=== PATIENT | female | born 1940 | race Caucasian/White ===

== ENCOUNTER 2016-04-23 09:51 | Day surgery (SDC) | payer OTHER ==
--- NOTE | 2016-04-21 14:29 | EKG Report ---
Test Performed on : 04/21/2016 2:12:17 PM Test Reason : PAT Blood Pressure : / mmHG Vent. Rate : 064 BPM Atrial Rate : 064 BPM P-R Int : 180 ms QRS Dur : 068 ms QT Int : 414 ms P-R-T Axes : 068 067 039 degrees QTc Int : 427 ms Normal sinus rhythm. Possible Septal infarct (cited on or before 30-DEC-2013) Abnormal ECG When compared with ECG of 30-DEC-2013 07:40, No significant change was found Confirmed by Michael Bustillos MD ([id number]) on 04/23/2016 9:10:43 PM
[2016-04-21 15:08] LABS: MANUAL DIFF NEEDED? NO
[2016-04-21 15:14] LABS: BASO% 0.4 % (0.0-0.8); EOS% 5.7 % (0.0-10.0); HEMATOCRIT 40.1 % (37.0-47.0); HEMOGLOBIN 13.1 g/dL (12.0-16.0); LYMPH# 2.01 X1000 (1.2-3.4); LYMPH% 28.8 % (20.5-51.1); MCH 26.6 PG (27-31); MCHC 32.7 g/dL (33-37); MCV 81.3 FL (81-99); MONO# 0.86 X1000 (0.11-0.59); MONO% 12.3 % (1.7-9.3); MPV 11.4 FL (7.4-10.4); NEUT% 52.8 % (42.2-75.2); PLT 211 X1000 (130-400); RBC 4.93 XMIL (4.2-5.4)
[2016-04-21 15:39] LABS: AGAP 11; BUN 16 mg/dL (8-22); CALCIUM 8.7 mg/dL (8.8-10.2); CHLORIDE 99 mmol/L (98-107); COSMO 277; POTASSIUM 4.7 mmol/L (3.5-5.1); SODIUM 138 mmol/L (136-145); TCO2 28 mmol/L (25-35)
[2016-04-23] MEDS ORDERED: LR 1,000 ML ONE ×3 (10:08→15:25)
[2016-04-23] MEDS ORDERED: KEFZOL 1 GM/D5W 50 ML ONE (10:08)
[2016-04-23] MEDS ORDERED: PEPCID ONE (10:18)
[2016-04-23] MEDS ORDERED: REGLAN ONE (10:18)
[2016-04-23] MEDS ORDERED: SODIUM CHLORIDE 0.9% ONE (12:06)
[2016-04-23] MEDS ORDERED: MARCAINE 0.25% PF/EPI 1:200,000 ONE (12:06)
[2016-04-23] MEDS ORDERED: FENTANYL ONE (14:18)
[2016-04-23] MEDS ORDERED: DIPRIVAN 1% ONE (14:18)
[2016-04-23] MEDS: MORPHINE ONE ×5 (14:25→15:09)
--- NOTE | 2016-04-23 14:33 | Diag Imaging Result Document ---
PROCEDURE NAME: OPERATIVE CHOLANGIOGRAM - 04/23/2016 INTRAOPERATIVE CHOLANGIOGRAM: COMPARISON: None available. FINDINGS: A single spot fluoroscopic image of the opacified common bile duct was provided, which was performed intraoperatively by Dr. José Miguel Lozoya. The common bile duct and common hepatic duct appear grossly normal in caliber. However, there is a potential filling defect seen at the distal end of the common bile duct as no contrast is seen entering small bowel on this single limited image. No other well-defined stricture and no other filling defect can be identified. IMPRESSION: As above. Please correlate with live fluoroscopic imaging. MTDD
[2016-04-23] MEDS ORDERED: NEOSTIGMINE ONE (15:24)
[2016-04-23] MEDS ORDERED: ZOFRAN ONE ×2 (15:24→16:37)
[2016-04-23] MEDS ORDERED: XYLOCAINE-MPF 2% ONE (15:25)
[2016-04-23] MEDS ORDERED: EPHEDRINE ONE (15:25)
[2016-04-23] MEDS ORDERED: ZEMURON ONE (15:25)
[2016-04-23] MEDS ORDERED: ROBINUL ONE (15:25)
[2016-04-23] MEDS ORDERED: QUELICIN (DOSE) ONE (15:25)
[2016-04-23] MEDS ORDERED: NORCO-5 ONE (15:45)
--- NOTE | 2016-04-23 17:15 | OPERATIVE NOTE ---
PROCEDURE DATE: 04/23/2016 PREOPERATIVE DIAGNOSIS: Chronic cholecystitis with cholelithiasis. POSTOPERATIVE DIAGNOSIS: Chronic cholecystitis with cholelithiasis. PRINCIPAL PROCEDURE: Laparoscopic cholecystectomy with intraoperative cholangiogram. SURGEON: Aviva Lozoya MD. ANESTHESIA: General in addition to local anesthetic. ESTIMATED BLOOD LOSS: 30 mL. DRAINS: None. INDICATIONS: Ms. Hue Morton is a 76-year-old white female who has been experiencing epigastric and right upper quadrant pain. An ultrasound was performed of her gallbladder which showed gallstones. It was felt that these gallstones were symptomatic, and cholecystectomy was recommended. FINDINGS: Her liver was a little bit swollen but otherwise appeared to be normal. There was no fatty infiltration involving the liver. Her gallbladder was chronically inflamed and had several small round stones within it. We did do an intraoperative cholangiogram which showed no dilatation of the extrahepatic bile ducts. The dye did not go into the duodenum, but I did not see any evidence of a stone at the ampulla. We felt the cholangiogram was essentially normal. We felt we did the operation safely, and no other intra-abdominal pathology was noted. DESCRIPTION OF PROCEDURE: The patient was brought to the operating room, placed supine, received general anesthesia, and was intubated. Her abdomen was prepped and draped within a sterile field. We began the procedure by making a small incision below the umbilicus with a 15 blade scalpel. A Veress needle was introduced through this incision, and a pneumoperitoneum was established. Once pneumoperitoneum was established, we removed the Veress needle. We used an 11 mm trocar and placed it intra-abdominally. The camera was placed through this port, and the abdomen was explored for injury; there was none. Three other trocars were placed along the right costal margin under direct vision of the camera. We placed an 11 mm trocar just to the right of the midline and two 5 mm trocars in our midclavicular and anterior axillary lines. Through our most lateral port, the gallbladder was grasped and retracted superiorly along with right lobe of the liver. Another grasper was used to grab the body of the gallbladder, and the triangle of Calot was bluntly dissected. We identified the cystic duct along its length. We placed a clip at the cystic duct/gallbladder junction. We made a small incision in the cystic duct using hook scissors, and a taut intraoperative cholangiogram catheter was used to perform the cholangiogram with the findings above. Once cholangiogram was completed, we removed the catheter, and 2 clips were placed proximally on the cystic duct. We divided the cystic duct between clips using hook scissors. The cystic artery was identified. A clip was placed distally, 2 proximally. It was divided using hook scissors. The spatula cautery was used to remove the gallbladder from the liver bed, and then we removed the gallbladder through our umbilical incision. We placed the trocar back through this incision, and the area of operation was thoroughly inspected, irrigated, and the irrigation was removed with suction. There was no evidence of ongoing bleeding or bile leak, and no drains were left. All trocars removed under direct vision of the camera. The pneumoperitoneum was allowed to dissipate. We used [id number] 2-0 Vicryl stitches below the umbilicus to reapproximate the fascia, and then all skin was closed with 4-0 Monocryl subcuticular stitches. Steri-Strips were applied. She tolerated the procedure well with plans for her to go the recovery room and then be discharged home later today under the care of her family.
[2016-04-23 17:17] VITALS: BP 163/83
== END 2016-04-23 17:12 | disposition home or self-care (01) ==
LOC: PAT 09:51
PROVIDERS: ATTEND Surgery
DX: K80.10 Calculus of gallbladder with chronic cholecystitis without obstruction (principal); E11.9 Type 2 diabetes mellitus without complications; I10 Essential (primary) hypertension; Z87.891 Personal history of nicotine dependence
CPT/HCPCS: 74300; 80048; 82948; 85025; 88304; 93005; 93010; C1751; J0330; J0690; J2270; J2405; J3010; J7120; Q9966; J2710